=== PATIENT | female | born 1985 | race Caucasian/White ===

== ENCOUNTER 2017-09-09 18:44 | Emergency (ER) | payer OTHER ==
[2017-09-09 18:52] VITALS: BP 127/79
--- NOTE | 2017-09-09 19:04 | ED Physician Documentation ---
PD HPI UPPER EXT INJURY - Stated complaint Stated Complaint: R HAND INJ - Chief complaint Chief Complaint: Ext Problem - History obtained from History obtained from: Patient - History of Present Illness Location: Other (She punched a wall, she was upset at something, she is right- hand dominant, she has swelling over the third MCP but really no pain. This was today.) Review of Systems Constitutional: reports: Reviewed and negative Cardiac: reports: Reviewed and negative Respiratory: reports: Reviewed and negative PD PAST MEDICAL HISTORY - Past Medical History Past Medical History: Yes Endocrine/Autoimmune: HyPERthyroidism Other Past Medical History: Recent Dx of Pete disease. - Past Surgical History Past Surgical History: No - Present Medications Home Medications: Ambulatory Orders Medication Instructions Recorded Confirmed Levothyroxine [Synthroid] 125 mcg PO DAILY 09/09/17 09/09/17 Meloxicam 15 mg PO DAILY 09/09/17 09/09/17 Norgestimate-Ethinyl Estradiol 1 tab PO DAILY 09/09/17 09/09/17 [Ortho Tri-Cyclen Lo Tablet] Sertraline HCl [Zoloft] 1 tab PO DAILY 09/09/17 09/09/17 - Allergies Allergies/Adverse Reactions: Allergies Allergy/AdvReac Type Severity Reaction Status Date / Time Penicillins Allergy Anaphylaxis Verified 09/09/17 18:53 nitrofurantoin AdvReac confusion Verified 09/09/17 18:53 [From Macrobid] - Social History Does the pt smoke?: No Smoking Status: Never smoker Does the pt drink ETOH?: No Does the pt have substance abuse?: No - Immunizations Immunizations are current?: Yes PD ED PE NORMAL - Vitals Vital signs reviewed: Yes - General General: Alert and oriented X 3, No acute distress - Extremities Extremities: Other (Swelling with ecchymosis and small abrasion over the third MCP but without much tenderness and full range of motion. NVI in the digits.) - Neuro Neuro: Alert and oriented X 3, Normal speech Results - Vitals Vitals: Vital Signs - 24 hr 09/09/17 18:49 Temperature 36.5 C Heart Rate 75 Respiratory 16 Rate Blood Pressure 127/79 O2 Saturation 97 Oxygen O2 Source Room air - Rads (name of study) r HAND Radiology: EMP read contemporaneously (Grossly normal, the radiologist wondered if there might be a fracture of the first distal phalanx, she is not tender here nor is that where her injury is.) Departure - Departure Disposition: 01 Home, Self Care Clinical Impression: Contusion of right hand Qualifiers: Encounter type: initial encounter Qualified Code(s): S60.221A - Contusion of right hand, initial encounter Condition: Good Record reviewed to determine appropriate education?: Yes Instructions: ED Sprain Hand Comments: Ibuprofen as needed for pain. Recheck with your doctor in 1 week if not better. Forms: Activity restrictions Discharge Date/Time: 09/09/17 19:22
--- NOTE | 2017-09-09 19:27 | XRAY Preliminary Report ---
Exam: XR HAND 3 VIEW RT IMPRESSION: 1. Irregular lucencies through the right first distal phalanx which may represent a nondisplaced frac ture versus artifact. No other osseous abnormalities. [facility] SITE ID: [id number]
--- NOTE | 2017-09-09 19:29 | XRAY Report ---
EXAM: RIGHT HAND RADIOGRAPHY EXAM DATE: 09/09/2017 07:19 PM. CLINICAL HISTORY: Punched wall. Crush injury. COMPARISON: None. TECHNIQUE: 3 views. FINDINGS: Bones: Irregular lucencies through the right first distal phalanx. No other osseous abnormalities. Joints: Normal. No subluxations. Soft Tissues: No radiopaque foreign bodies. IMPRESSION: 1. Irregular lucencies through the right first distal phalanx which may represent a nondisplaced frac ture versus artifact. No other osseous abnormalities. [facility] Referring Provider Line: [phone] SITE ID: [id number]
== END 2017-09-09 19:22 | disposition home or self-care (01) ==
LOC: ED 18:44
DX: S60.221A Contusion of right hand, initial encounter (principal); W22.09XA Striking against other stationary object, initial encounter; E05.90 Thyrotoxicosis, unspecified without thyrotoxic crisis or storm; E06.3 Autoimmune thyroiditis
CPT/HCPCS: 99283

== ENCOUNTER 2022-12-22 16:30 | Outpatient (CLI) | payer OTHER | END 2022-12-22 16:45 | disposition home or self-care (01) | LOC: LAB.N 16:30 | PROVIDERS: ATTEND Family Medicine | DX: T14.8XXA Other injury of unspecified body region, initial encounter (principal) | CPT/HCPCS: 36415; 83516 ==

== ENCOUNTER 2023-09-27 16:43 | Outpatient (CLI) | payer OTHER | END 2023-09-27 16:44 | disposition short-term general hospital (02) | LOC: EMS 16:43 | DX: S49.91XA Unspecified injury of right shoulder and upper arm, initial encounter (principal); S99.912A Unspecified injury of left ankle, initial encounter; W11.XXXA Fall on and from ladder, initial encounter; Y92.009 Unspecified place in unspecified non-institutional (private) residence as the place of occurrence of the external cause | CPT/HCPCS: A0425; A0427 ==

== ENCOUNTER 2024-04-01 07:59 | Outpatient (CLI) | payer OTHER ==
--- NOTE | 2024-04-01 09:52 | DEXA Report ---
PROCEDURE: Dexa Spine and/or Hip INDICATIONS: HUMERUS FX TECHNIQUE: Dual energy x-ray absorptiometry (DXA) was performed on a Tapactive System. Regions measur ed are the AP Spine, femoral neck, and if needed forearm. COMPARISON: None FINDINGS: Lumbar Spine: Bone Mineral Density: 1.275 g/cm/cm,T score: 0.8. Left Femoral Neck: Bone Mineral Density: 1.068 g/cm/cm, T score: 0.2. Left Hip: Bone Mineral Density: 1.141 g/cm/cm,T score: 1.1. (T score greater or equal to -1.0: NORMAL) (T score from -1.1 to -2.4: OSTEOPENIA) (T score less than or equal to -2.5 to: OSTEOPOROSIS) Impression: By WHO criteria, this patient has normal bone density. Patients with diagnosis of osteoporosis or osteopenia should have regular bone mineral density assess ment. For those eligible for Medicare, routine testing is allowed once every 2 years. Testing frequ ency can be increased for patients who have rapidly progressing disease or for those who are receivin g medical therapy to restore bone mass. Reviewed by: Oren Donovan MD on 04/01/2024 9:50 AM PDT Approved by: Oren Donovan MD on 04/01/2024 9:50 AM PDT Station ID: [id number]
== END 2024-04-01 08:00 | disposition home or self-care (01) ==
LOC: DI 07:59
PROVIDERS: ATTEND Nurse Practitioner Family
DX: S42.309A Unspecified fracture of shaft of humerus, unspecified arm, initial encounter for closed fracture (principal)